=== PATIENT | female | born 1965 | race Caucasian/White ===

== ENCOUNTER 2016-05-24 10:41 | Outpatient (CLI) | payer OTHER ==
--- NOTE | 2016-05-24 11:27 | DIAGNOSTIC IMAGING REPORT ---
PROCEDURE: US VENOUS - RIGHT EXT INDICATION: RLL SWELLING, R/O DVT TECHNIQUE: Duplex sonography of the deep venous system in the right lower extremity was performed. Compression and augmentation techniques were used. COMPARISON: None. FINDINGS: Each interrogated segment of deep vein from the common femoral vein into the calf veins demonstrates normal compressibility, augmentation and/or color Doppler flow without filling defect. No evidence of significant soft-tissue edema, soft-tissue mass or cyst. IMPRESSION: 1. No deep venous thrombosis in the right lower extremity.
== END 2016-05-24 23:00 | disposition home or self-care (01) ==
LOC: US SRH 10:41
DX: I80.9 Phlebitis and thrombophlebitis of unspecified site (principal); M54.6 Pain in thoracic spine; F17.200 Nicotine dependence, unspecified, uncomplicated

== ENCOUNTER 2016-07-09 09:23 | Outpatient (CLI) | payer OTHER ==
--- NOTE | 2016-07-09 11:08 | DIAGNOSTIC IMAGING REPORT ---
PROCEDURE: CT ABDOMEN W/WO CONTRAST INDICATION: RENAL MASS TECHNIQUE: Axial scans before and after 125 ml IV through the abdomen. Coronal and sagittal re-formations were obtained. COMPARISON: None. FINDINGS: Normal enhancement and excretion of the kidneys. 8 mm right renal lower pole and 5 mm left renal upper pole cysts. No calculi, hydronephrosis or enhancing mass. Liver, gallbladder, pancreas, spleen and adrenal glands are normal. Normal abdominal aorta. Mild diverticulosis of the descending and sigmoid colon. There is some fluid in the ascending colon. 2.8 cm left adnexal cyst. Normal heart size. Lungs are clear. IMPRESSION: 1. Small bilateral renal cysts 2. Diverticulosis 3. Fluid in the ascending colon. This may indicate enterocolitis. Correlate clinically. 4. 2.8 cm left adnexal cyst.
--- NOTE | 2016-07-09 11:20 | DIAGNOSTIC IMAGING REPORT ---
PROCEDURE: US COMPLETE PELVIC W/TRANSVAG INDICATION: RENAL MASS TECHNIQUE: Transabdominal and endovaginal goldberg scale and color Doppler sonographic images of the female pelvis were obtained. COMPARISON: Pelvic ultrasound 04/29/[address] abdomen 07/09/2016. FINDINGS: TRANSABDOMINAL SCANS: Interval hysterectomy. Bladder is unremarkable. Left adnexal cyst. Kidneys are unremarkable. TRANSVAGINAL SCANS: Normal vaginal cuff. Left ovary measures 4 x 3.6 x 2.6 cm with a 3.4 cm cyst containing a single septation. There is vascular flow to the left ovary. Right oophorectomy. No free fluid in the cul-de-sac. IMPRESSION: 1. Hysterectomy and right oophorectomy 2. 3.4 cm left ovarian cyst with a single septation.
== END 2016-07-09 23:00 ==
LOC: US SRH 09:23 → CT SRH 07-10 11:00
DX: N28.89 Other specified disorders of kidney and ureter (principal); N28.1 Cyst of kidney, acquired; N85.8 Other specified noninflammatory disorders of uterus; N83.202 Unspecified ovarian cyst, left side